=== PATIENT | male | born 1980 | race Two or more races ===

== ENCOUNTER → 2017-01-28 | Outpatient (CLI) | payer BC | END | disposition home or self-care (01) | LOC: CDC 10:58 | DX: Z01.810 Encounter for preprocedural cardiovascular examination (principal); M77.01 Medial epicondylitis, right elbow; M25.561 Pain in right knee; M25.521 Pain in right elbow | CPT/HCPCS: 93000 ==

== ENCOUNTER 2018-02-25 02:59 | Emergency (ER) | payer BC ==
[~2018-02-25] VITALS: Ht 180.3 cm; Wt 104.2 kg
[2018-02-25 06:09] VITALS: BP 155/85
[2018-02-26] MEDS ORDERED: AMLODIPINE BESY10 MG PO (13:02)
[2018-02-26] MEDS ORDERED: VALSARTAN40 MG PO (13:03)
[2018-02-26] MEDS ORDERED: EXCEDRIN EXTRA1 EACH PO (13:04)
[2018-02-26] MEDS ORDERED: EXCEDRIN MIGRA1 EAC3 PO (13:06)
== END 2018-02-25 06:10 | disposition home or self-care (01) ==
LOC: EME 02:59
DX: G43.909 Migraine, unspecified, not intractable, without status migrainosus (principal); I10 Essential (primary) hypertension
CPT/HCPCS: 70450; 99281; 99284; J1200; J1885; J2765; J7030

== ENCOUNTER 2018-02-26 08:09 | Inpatient (IN) | payer BC ==
[~2018-02-26] VITALS: Ht 180.3 cm; Wt 102.6 kg
[2018-02-26 09:38] LABS: BASOPHIL (%) 0.4 % (0-1); EOSINOPHIL (%) 0.8 % (0-5); EOSINOPHIL COUNT 0.1 K/uL (0-0.3); HEMATOCRIT 41.7 % (38.0-50.0); HEMOGLOBIN 14.3 G/DL (12.5-16.6); IMMATURE GRANULOCYTE (%) 0.4 % (0.0-0.7); LYMPHOCYTE (%) 20.5 % (15-42); LYMPHOCYTE COUNT 1.6 K/uL (1.0-2.8); MCH 29.8 PG (29.0-34.0); MCHC 34.3 G/DL (30.0-36.0); MCV 86.9 FL (86-99); MONOCYTE (%) 8.5 % (3-12); MONOCYTE COUNT 0.7 K/uL (0-0.8); NEUTROPHIL (%) 69.4 % (45-76); NEUTROPHIL COUNT 5.6 K/uL (1.8-6.4); PLATELET COUNT 151 K/uL (156-360); RBC DIS.WIDTH-SD 38.9 % (39-53)
[2018-02-26 09:52] LABS: CHLORIDE 105 mEq/L (99-109); POTASSIUM 3.6 mEq/L (3.7-5.4); SODIUM 138 mEq/L (136-147)
[2018-02-26 09:54] LABS: GLUCOSE 105 mg/dL (70-99); TOTAL PROTEIN 6.2 g/dL (6.4-8.3)
[2018-02-26 09:56] LABS: TOTAL BILIRUBIN 0.7 mg/dL (0.0-1.0)
[2018-02-26 09:58] LABS: ALKALINE PHOSPHATASE 58 IU/L (3-129); CREATININE 0.8 mg/dL (0.6-1.3); GFR ESTIMATE (CALCULATED) > 59 mL/min/ (58.99-99999)
[2018-02-26 09:59] LABS: UREA NITROGEN (BUN) 9 mg/dL (9-23)
[2018-02-26 10:00] LABS: AST (GOT) 15 IU/L (2-34)
[2018-02-26 10:01] LABS: ALT (GPT) 24 IU/L (3-49)
[2018-02-26 11:47] LABS: APPEARANCE HAZY/COLORLESS; CSF TUBE NUMBER TUBE #3; RED CELL COUNT 5 /MM^3 (0-1)
[2018-02-26 11:48] LABS: WHITE CELL COUNT 489 /MM^3 (0-5)
[2018-02-26 12:02] LABS: CSF PROTEIN 174 mg/dL (15-45)
[2018-02-26 12:08] LABS: GLUCOSE, CSF 51 mg/dL (40-80)
[2018-02-26 12:27] LABS: CSF EOSINOPHILS 0 % (0-25); MONONUCLEAR WBC'S 99 % (50-90); POLYNUCLEAR WBC'S 1 % (0-3)
[2018-02-26] MEDS ORDERED: AMLODIPINE BESY10 MG PO (13:02)
[2018-02-26] MEDS ORDERED: VALSARTAN40 MG PO (13:03)
[2018-02-26] MEDS ORDERED: EXCEDRIN EXTRA1 EACH PO (13:04)
[2018-02-26] MEDS ORDERED: EXCEDRIN MIGRA1 EAC3 PO (13:06)
[2018-02-26 20:48] VITALS: BP 141/94
[2018-02-26 23:40] VITALS: BP 138/89
[2018-02-27 01:41] LABS: APPEARANCE CLEAR ((CLEAR)); BILIRUBIN NEGATIVE; BLOOD NEGATIVE; COLOR YELLOW ((YELLOW)); GLUCOSE (STRIP) NEGATIVE; KETONES NEGATIVE; LEUKOCYTES NEGATIVE; NITRITE NEGATIVE; PROTEIN (STRIP) 30; SPECIFIC GRAVITY 1.023 (1.000-1.030); UROBILINOGEN 0.2 MG/DL (0.2-1.0)
[2018-02-27 06:12] LABS: HEMATOCRIT 44.2 % (38.0-50.0); MCH 29.6 PG (29.0-34.0); MCHC 33.9 G/DL (30.0-36.0); MCV 87.4 FL (86-99); PLATELET COUNT 171 K/uL (156-360); RBC DIS.WIDTH-CV 12.1 % (11.8-14.6); RBC DIS.WIDTH-SD 38.8 % (39-53); RED BLOOD COUNT 5.06 M/uL (4.00-5.50); WHITE BLOOD COUNT 9.5 K/uL (4.1-10.2)
[2018-02-27 06:28] VITALS: BP 144/87
[2018-02-27 06:32] LABS: ALBUMIN 4.3 G/DL (3.2-4.8); ALKALINE PHOSPHATASE 58 IU/L (3-129); ALT (GPT) 17 IU/L (3-49); AST (GOT) 12 IU/L (2-34); CHLORIDE 102 MEQ/L (99-109); CREATININE 0.9 MG/DL (0.6-1.3); GFR ESTIMATE (CALCULATED) > 59 mL/min/ (58.99-99999); GLUCOSE 142 mg/dL (70-99); POTASSIUM 3.5 MEQ/L (3.7-5.4); SODIUM 139 MEQ/L (136-147); TOTAL BILIRUBIN 0.5 MG/DL (0.0-1.0); TOTAL PROTEIN 6.6 G/DL (6.4-8.3); UREA NITROGEN (BUN) 8 mg/dL (9-23)
[2018-02-27 15:58] VITALS: BP 136/86
[2018-02-27 20:21] VITALS: BP 136/87
[2018-02-27 23:54] VITALS: BP 135/80
[2018-02-28 03:36] VITALS: BP 131/82
[2018-02-28 06:48] LABS: BASOPHIL (%) 0.3 % (0-1); EOSINOPHIL (%) 0 % (0-5); HEMATOCRIT 43.2 % (38.0-50.0); HEMOGLOBIN 14.7 G/DL (12.5-16.6); IMMATURE GRANULOCYTE (%) 0.4 % (0.0-0.7); LYMPHOCYTE (%) 10.7 % (15-42); LYMPHOCYTE COUNT 1.2 K/uL (1.0-2.8); MCH 29.5 PG (29.0-34.0); MCV 86.7 FL (86-99); MONOCYTE (%) 5.3 % (3-12); MONOCYTE COUNT 0.6 K/uL (0-0.8); NEUTROPHIL (%) 83.3 % (45-76); NEUTROPHIL COUNT 9.4 K/uL (1.8-6.4); PLATELET COUNT 179 K/uL (156-360); RBC DIS.WIDTH-CV 12.1 % (11.8-14.6); RBC DIS.WIDTH-SD 38.5 % (39-53); RED BLOOD COUNT 4.98 M/uL (4.00-5.50); WHITE BLOOD COUNT 11.3 K/uL (4.1-10.2)
[2018-02-28 07:28] LABS: CHLORIDE 107 MEQ/L (99-109); CREATININE 0.8 MG/DL (0.6-1.3); GFR ESTIMATE (CALCULATED) > 59 mL/min/ (58.99-99999); GLUCOSE 122 mg/dL (70-99); POTASSIUM 4.2 MEQ/L (3.7-5.4); SODIUM 142 MEQ/L (136-147); UREA NITROGEN (BUN) 7 mg/dL (9-23)
[2018-02-28 07:32] VITALS: BP 133/74
[2018-02-28 11:48] VITALS: BP 132/84
[2018-02-28 16:00] VITALS: BP 120/76
[2018-02-28 16:05] VITALS: BP 140/83
[2018-02-28] MEDS ORDERED: DECADRON4 MG/ML 1M IV (16:59)
[2018-02-28] MEDS ORDERED: ENDOCET 5-3251 EACH PO (16:59)
== END 2018-02-28 17:26 | disposition home or self-care (01) | DRG 76 ==
LOC: EME 08:09 → EDOF 15:30 → 5SOUTH 15:30 → ENRESERV 15:56 → 5SOUTH 20:24
PROVIDERS: Internal Medicine; Physician Assistant Medical
PROC: 009U3ZX Drainage of Spinal Canal, Percutaneous Approach, Diagnostic (ICD-10-PCS; principal; 2018-02-26)
DX: A87.9 Viral meningitis, unspecified (principal); R51 Headache; I10 Essential (primary) hypertension; E87.6 Hypokalemia; E55.9 Vitamin D deficiency, unspecified; E53.8 Deficiency of other specified B group vitamins; Z83.3 Family history of diabetes mellitus
CPT/HCPCS: 70450; 80048; 80053; 81003; 82945; 83605; 84157; 85025; 85027; 87040; 87070; 87205; 87502; 89051; 99281; 99284; 99285; J0133; J0696; J1100; J1170; J1200; J1885; J2405; J2765; J3010; J3480; J7030; J7050